=== PATIENT | female | born 1970 | race Caucasian/White ===

== ENCOUNTER 2017-10-27 20:24 | Emergency (ER) | payer OTHER ==
[2017-10-27 20:44] VITALS: BP 158/100
--- NOTE | 2017-10-27 20:56 | UC ---
Shortness of Breath HPI - HPI Summary HPI Summary: 2 WEEKS OF PERSISTENT COUGH AND WHEEZE. GOT WORSE TODAY WITH SOB - WORSE WITH EXERTION. SEEN AT [facility] ABOUT 10 DAYS AGO AND TX WITH [facility]PAK AND PREDNISONE AND INHALER. SLIGHT IMPROVEMENT BUT SX DID NOT RESOLVE. NO FEVER, N/V/D OR NASAL CONGESTION. - History of Current Complaint Chief Complaint: UCRespiratory Stated Complaint: chesT CONGESTION, AND COUGH Time Seen by Provider: 10/27/17 20:34 Hx Obtained From: Patient Hx Last Menstrual Period: 3 weeks ago Onset/Duration: Sudden Onset, Lasting Weeks, Still Present Timing: Constant Current Severity: Moderate Dyspnea At: Rest Aggrevating Factors: Movement, Deep Breaths Alleviating Factors: Nothing Associated Signs & Symptoms: Positive: Cough (Nonproductive), Wheezing. Negative: Chest Pain w/Cough, Chest Pain Unrelated to Cough, Fever, Chills, Nasal Congestion - Allergy/Home Medications Allergies/Adverse Reactions: Allergies Allergy/AdvReac Type Severity Reaction Status Date / Time Seasonal Allergy Sneezing Uncoded 10/27/17 20:40 Home Medications: Home Medications Albuterol HFA INHALER* [Ventolin HFA Inhaler*] 1 puff INH Q4H PRN 10/27/17 [ History Confirmed 10/27/17] Dextromethorphan-Guaifenesin [Mucinex Dm Maximum Streng 60-1200 mg] 1 tab PO BID PRN 10/27/17 [History Confirmed 10/27/17] PMH/Surg Hx/FS Hx/Imm Hx Previously Healthy: Yes - Surgical History Surgical History: None - Family History Known Family History: Positive: Hypertension - Social History Alcohol Use: Rare Substance Use Type: None Smoking Status (MU): Never Smoked Tobacco Review of Systems Constitutional: Negative ENT: Negative Respiratory: Shortness Of Breath, Cough Cardiovascular: Negative Gastrointestinal: Negative All Other Systems Reviewed And Are Negative: Yes Physical Exam Triage Information Reviewed: Yes Appearance: Well-Appearing, No Pain Distress, Well-Nourished Vital Signs: Initial Vital Signs Temp 99.0 F 10/27/17 20:32 Pulse 79 10/27/17 20:32 Resp 20 10/27/17 20:32 BP 158/100 10/27/17 20:32 Pulse Ox 96 10/27/17 20:32 Vital Signs Reviewed: Yes Eyes: Positive: Conjunctiva Clear ENT: Positive: Hearing grossly normal, Pharynx normal, TMs normal Neck: Positive: Supple, Nontender, No Lymphadenopathy Respiratory: Positive: No respiratory distress, No accessory muscle use, Rhonchi - LOWER LOBES, Wheezing - MILD DIFFUSE, Plerual rub - UPPER LOBES, Other : - PT COUGHING ALL THROUGHOUT ENCOUNTER Cardiovascular Exam: Normal Abdomen Description: Positive: Soft Musculoskeletal: Positive: No Edema Neurological: Positive: Alert Psychological: Positive: Age Appropriate Behavior Skin: Negative: rashes Diagnostics - Radiology CHEST XRAY Xray Interpretation: No Acute Changes Radiology Interpretation Completed By: Radiologist Re-Evaluation - Re-Evaluation First Eval Re-Evaluation Time: 22:20 Change: Improved Shortness of Breath Dx - Course Course Of Treatment: PT HAS HAD TX WITH [facility] ALREADY. WILL GIVE 3 DAY BURST OF PREDNISONE AND ADVISED TO TAKE IBUPROFEN. RX FOR NEBS. F/U WITH PCP 5-7 DAYS. TO ER IF SX WORSEN. - Differential Dx/Diagnosis Provider Diagnoses: PLEURISY Discharge - Discharge Plan Condition: Stable Disposition: HOME Prescriptions: Albuterol 2.5MG/3ML (0.083%)* [Ventolin 2.5 MG/3 ML NEB.MERE*] 2.5 mg INH Q4H PRN #1 box PRN Reason: Wheezing predniSONE TAB* [Deltasone TAB*] 50 mg PO DAILY #2 tab Respiratory Therapy Supplies [Nebulizer Kit/Tubing/Mout] 1 kit .SEE ORDER . DIRECTED #1 kit Patient Education Materials: Pleurisy (ED) Referrals: Pedro Nunes MD [Primary Care Provider] - 5 Days Additional Instructions: CHEST XRAY TODAY UNREMARKABLE TAKE IBUPROFEN 400-600MG EVERY 6 HRS FOR THE NEXT 2-3 DAYS. PREDNISONE BURST FOR 3 DAYS. RX FOR NEBULIZER AND ALBUTEROL NEBS SENT. FOLLOW-UP WITH YOUR PCP WITHIN A WEEK FOR RE-EVALUATION. GO TO ER WITHOUT FAIL IF YOU DEVELOP CHEST PAIN, WORSENING SHORTNESS OF BREATH, NAUSEA, SWEATS, DIZZINESS OR ANY OTHER CONCERNING SYMPTOMS. YOUR BLOOD PRESSURE WAS ELEVATED TODAY. THIS MAY BE DUE TO YOUR ACUTE CONDITION. MONITOR AND FOLLOW-UP WITH YOUR PCP WITHIN 4 WEEKS IF IT HAS NOT RETURNED TO NORMAL.
--- NOTE | 2017-10-27 21:32 | RAD ---
INDICATION: Cough. Short of breath. COMPARISON: December 31, 2014 TECHNIQUE: PA and lateral dual-energy views were obtained. FINDINGS: Bones/Soft Tissues: There are no acute bony findings. Cardiomediastinal: The cardiomediastinal silhouette is unchanged. There is a right-sided aortic arch. The cardiac apex is on the left. Lungs: There are no infiltrates. Pleura: There are no pleural effusions. Other: The gastric bubble is on the left IMPRESSION: NO ACTIVE DISEASE.
[2017-10-27] MEDS ORDERED: Albuterol 2.5 MG/3 ML NEB.SOL* (0.083%) INH ONE (21:45)
[2017-10-27] MEDS ORDERED: Ipratropium 0.5MG/2.5ML NEB* 0.5 MG/2.5 ML NEB.SOLN INH ONE (21:45)
[2017-10-27] MEDS ORDERED: predniSONE TAB* 20 MG PO ONE (22:25)
== END 2017-10-27 22:40 | disposition home or self-care (01) ==
LOC: UCEAST 20:24
DX: R09.1 Pleurisy (principal); R05 Cough; R06.02 Shortness of breath
CPT/HCPCS: 71046; 99212; G0463; J7512; J7644

== ENCOUNTER 2019-01-27 11:18 | Emergency (ER) | payer OTHER ==
[2019-01-27 13:39] VITALS: BP 153/90
--- NOTE | 2019-03-10 14:48 | UC ---
Shoulder Pain HPI - HPI Summary HPI Summary: Patient fell down 12 stairs at work today and landed directly on her right shoulder. Has pain over the shoulder, elbow and also hit her right lower leg. She is here more for her arm and is not so concerned about her leg injury. - History of Current Complaint Chief Complaint: UCUpperExtremity Stated Complaint: SHOULDER INJURY Time Seen by Provider: 01/27/19 13:00 Hx Obtained From: Patient Hx Last Menstrual Period: 10/05 Onset/Duration: Sudden Onset, Lasting Hours, Still Present Timing: Constant Severity Initially: Moderate Severity Currently: Moderate Pain Intensity: 3 Pain Scale Used: 0-10 Numeric Character: Sharp Aggravating Factor(s): Movement Alleviating Factor(s): Rest Associated Signs And Symptoms: Positive: Negative - Allergies/Home Medications Allergies/Adverse Reactions: Allergies Allergy/AdvReac Type Severity Reaction Status Date / Time Seasonal Allergy Sneezing Uncoded 01/27/19 11:33 Home Medications: Home Medications NK [No Home Medications Reported] 01/27/19 [History Confirmed 01/27/19] PMH/Surg Hx/FS Hx/Imm Hx Respiratory History: Asthma - Surgical History Surgical History: None - Family History Known Family History: Positive: Hypertension - Social History Alcohol Use: Occasionally Substance Use Type: None Smoking Status (MU): Never Smoked Tobacco Review of Systems All Other Systems Reviewed And Are Negative: Yes Constitutional: Positive: Negative Skin: Positive: Negative Respiratory: Positive: Negative Cardiovascular: Positive: Negative Gastrointestinal: Positive: Negative Musculoskeletal: Positive: Arthralgia, Decreased ROM, Myalgia Physical Exam Triage Information Reviewed: Yes Appearance: Well-Appearing, No Pain Distress, Well-Nourished Vital Signs: Initial Vital Signs Temp 98.8 F 01/27/19 11:27 Pulse 66 01/27/19 11:27 Resp 18 01/27/19 11:27 BP 157/91 01/27/19 11:27 Pulse Ox 99 01/27/19 11:27 Vital Signs Reviewed: Yes Eyes: Positive: Conjunctiva Clear ENT: Positive: Hearing grossly normal Neck: Positive: Supple Respiratory: Positive: No respiratory distress, No accessory muscle use Cardiovascular: Positive: Pulses Normal Abdomen Description: Positive: Soft Musculoskeletal: Positive: No Edema, ROM Limited @ - RIGHT SHOULDER, Other: - TTP DIFFUSELY OVER RIGHT SHOULDER Neurological: Positive: Alert Psychological: Positive: Age Appropriate Behavior Skin: Negative: Rashes Diagnostics - Radiology RIGHT SHOULDER/ELBOW XRAYS Radiology Interpretation Completed By: Radiologist Summary of Radiographic Findings: NO ACUTE OSSEOUS INJURY Shoulder Course/Dx - Differential Dx/Diagnosis Provider Diagnosis: Other sprain of right shoulder joint, initial encounter Discharge - Sign-Out/Discharge Documenting (check all that apply): Patient Departure All imaging exams completed and their final reports reviewed: Yes - Discharge Plan Condition: Stable Disposition: HOME Patient Education Materials: Acromioclavicular Separation (ED), Shoulder Sprain (ED) Referrals: Pedro Nunes MD [Primary Care Provider] - If Needed Additional Instructions: X-RAYS TODAY OF YOUR RIGHT SHOULDER AND ELBOW ARE UNREMARKABLE. YOUR MECHANISM OF INJURY AND SYMPTOMS ARE CONSISTENT WITH A SHOULDER SPRAIN/MILD AC JOINT INJURY. WEAR THE SLING NEEDED FOR COMFORT. OTC MEDICATIONS NEEDED. BE SURE TO GO THROUGH STRETCHING AND SLOW RANGE OF MOTION EXERCISES DAILY YOU ARE ABLE TO PREVENT STIFFENING UP AND MAKING THE DISCOMFORT WORSE. FOLLOW-UP WITH YOUR PCP IF YOUR SYMPTOMS ARE NOT IMPROVING EXPECTED OVER THE NEXT 1-2 WEEKS. - Billing Disposition and Condition Condition: STABLE Disposition: Home
== END 2019-01-27 14:01 | disposition home or self-care (01) ==
LOC: UCEAST 11:18
DX: S43.491A Other sprain of right shoulder joint, initial encounter (principal); M25.521 Pain in right elbow; W10.9XXA Fall (on) (from) unspecified stairs and steps, initial encounter; Y92.9 Unspecified place or not applicable; Y99.0 Civilian activity done for income or pay
CPT/HCPCS: 99212; G0463

== ENCOUNTER 2022-11-25 18:25 | Inpatient (IN) ==
[2022-11-25] MEDS ORDERED: Iodixanol (CONTRAST) 320 MG/ML 100 ML SDV IV ONE (18:48)
[2022-11-25 19:00] LABS: ABS Basophils 0.1 10^3/ul (0-0.2); ABS Eosinophils 0.1 10^3/ul (0-0.6); ABS Lymphocytes 3.3 10^3/ul (1.0-4.8); ABS Monocytes 0.5 10^3/ul (0-0.8); ABS Neutrophils 5.2 10^3/ul (1.5-7.7); Hematocrit 37 % (35-47); Lymphocyte % 35.8 %; Mean Corpuscular HGB Conc 32 g/dL (31-36); Mean Corpuscular Hemoglobin 29 pg (27-31); Mean Corpuscular Volume 91 fL (80-97); Mean Platelet Volume 7.5 fL (7.4-10.4); Nucleated Red Blood Cells % 0.1; Platelet Count 225 10^3/uL (150-450); Red Blood Count 4.11 10^6 /uL (3.70-4.87); Red Cell Distribution Width 13 % (10-15); White Blood Count 9.3 10^3/uL (3.5-10.8)
[2022-11-25 19:09] LABS: INR 1.24 (0.88-1.18)
[2022-11-25] MEDS ORDERED: TENECTEPLASE 50 MG VIAL KIT 5 MG/ML (reconstituted) IV ONE (19:15)
[2022-11-25 20:13] LABS: Albumin/Globulin Ratio 1.4 (1-3); Calcium 9.2 mg/dL (8.6-10.3); Creatinine, Serum 0.48 mg/dL (0.51-0.95); Globulin 2.8 g/dL (2-4); HDL Cholesterol 52.8 mg/dL; Potassium 3.5 mmol/L (3.5-5.0); Total Bilirubin 0.4 mg/dL (0.2-1.0); Total Protein 6.8 g/dL (6.4-8.9); eGFR CKD-EPI 115.3 (>60)
[2022-11-25] MEDS ORDERED: Dextrose 50% Syringe 50 ml 25 GM/50 ML SYRINGE IV PUSH PRN (20:24)
[2022-11-25] MEDS ORDERED: Ondansetron 4 mg VIAL 2 MG/ML 2 ml VIAL IV PRN (20:24)
[2022-11-25] MEDS ORDERED: Albuterol HFA INHALER 8 gm MDI INH PRN (20:31)
[2022-11-25] MEDS: Potassium Chlor 20 meq TAB.ER PO SCH (23:12)
[2022-11-26 04:35] LABS: ABS Eosinophils 0.1 10^3/ul (0-0.6); ABS Lymphocytes 3.2 10^3/ul (1.0-4.8); ABS Monocytes 0.5 10^3/ul (0-0.8); Eosinophil % 0.7 %; Hematocrit 34 % (35-47); Hemoglobin 11.5 g/dL (12.0-16.0); Lymphocyte % 35.9 %; Mean Corpuscular HGB Conc 34 g/dL (31-36); Mean Corpuscular Hemoglobin 30 pg (27-31); Mean Corpuscular Volume 90 fL (80-97); Mean Platelet Volume 7.4 fL (7.4-10.4); Nucleated Red Blood Cells % 0.1; Platelet Count 217 10^3/uL (150-450); Red Blood Count 3.82 10^6 /uL (3.70-4.87); Red Cell Distribution Width 12 % (10-15); White Blood Count 8.8 10^3/uL (3.5-10.8)
[2022-11-26 05:12] LABS: Calcium 9.1 mg/dL (8.6-10.3); Creatinine, Serum 0.48 mg/dL (0.51-0.95); Magnesium 1.5 mg/dL (1.9-2.7); Potassium 3.8 mmol/L (3.5-5.0); eGFR CKD-EPI 115.3 (>60)
[2022-11-26] MEDS ORDERED: Magnesium Sulfate IV 3 GM in NS 0.9% 100 ml BAG 100 ML IVPB ONE (05:17)
[2022-11-26] MEDS: Mometasone/Formoter 200/5 MDI INH SCH ×2 (07:37→07:40)
[2022-11-26] MEDS: Potassium Chlor 20 meq TAB.ER PO SCH ×2 (08:46→20:17)
[2022-11-26] MEDS ORDERED: Fluticasone/Vilanterol MDI(NF) 200/25 MDI INH SCH (09:00)
[2022-11-26] MEDS ORDERED: Sulfur Hexaflouride MICROSPHR 25 MG VIAL ONE (10:46)
[2022-11-26] MEDS: Aspirin EC 81 mg TAB.EC (enteric coated) PO SCH (23:00)
[2022-11-27 04:26] LABS: ABS Eosinophils 0.1 10^3/ul (0-0.6); ABS Monocytes 0.5 10^3/ul (0-0.8); ABS Neutrophils 3.2 10^3/ul (1.5-7.7); Eosinophil % 2.3 %; Hematocrit 33 % (35-47); Hemoglobin 10.9 g/dL (12.0-16.0); Mean Corpuscular HGB Conc 33 g/dL (31-36); Mean Corpuscular Hemoglobin 29 pg (27-31); Mean Corpuscular Volume 90 fL (80-97); Mean Platelet Volume 7.5 fL (7.4-10.4); Platelet Count 195 10^3/uL (150-450); Red Blood Count 3.71 10^6 /uL (3.70-4.87); Red Cell Distribution Width 13 % (10-15); White Blood Count 5.8 10^3/uL (3.5-10.8)
[2022-11-27 04:45] LABS: Calcium 8.8 mg/dL (8.6-10.3); Magnesium 1.8 mg/dL (1.9-2.7); Potassium 3.8 mmol/L (3.5-5.0)
[2022-11-27 04:51] LABS: Creatinine, Serum 0.45 mg/dL (0.51-0.95); eGFR CKD-EPI 117.1 (>60)
[2022-11-27] MEDS ORDERED: Magnesium Sulfate IV 1GM/100ML 1 GM/100 ML BAG IV ONE (05:21)
[2022-11-27] MEDS: Mometasone/Formoter 200/5 MDI INH SCH ×3 (07:02→07:59)
[2022-11-27] MEDS: Aspirin EC 81 mg TAB.EC (enteric coated) PO SCH (08:49)
[2022-11-27] MEDS: Potassium Chlor 20 meq TAB.ER PO SCH (08:49)
[2022-11-27 09:08] VITALS: BP 128/73
== END 2022-11-27 09:15 | disposition home or self-care (01) | DRG 69 ==
LOC: ED 18:25 → EDHOLD 20:25 → ICU 22:53
PROVIDERS: ADMIT Internal Medicine Critical Care Medicine; ATTEND Internal Medicine Critical Care Medicine